=== PATIENT | female | born 1985 | race Caucasian/White ===

== ENCOUNTER 2017-11-22 09:04 | Emergency (ER) | payer SELFPAY ==
--- NOTE | 2017-11-22 09:16 | ER Document Report ---
ED Medical Screen (RME) - General Chief Complaint: Allergic Reaction Stated Complaint: POSSIBLE ALLERGIC REACTION Mode of Arrival: Ambulatory Information source: Patient Notes: Patient is a 32 year old female presenting to the emergency department complaining of a rash and pain in her face. Patient states she was diagnosed with a sinus infection 2 days ago and prescribed an antibiotic. Patient states she took one pill and began to have a rash that was onset today. Patient states her rash is not itchy but still has pain in her face stating "i feel like my head is going to explode". Patient states she has taken Benadryl. GENERAL: Alert, interacts well. No acute distress. HEAD: Normocephalic, Atraumatic. NECK: Full range of motion. Supple. Trachea midline. LUNGS: No stridor. EXTREMITIES: Moves all four extremities spontaneously. SKIN: Blanchable erythema across the face, neck and chest. PSYCH: Patient appears anxious. I have greeted and performed a rapid initial assessment of this patient. A comprehensive ED assessment and evaluation of the patient, analysis of test results and completion of the medical decision making process will be conducted by additional ED providers. TRAVEL OUTSIDE OF THE [place] IN LAST 30 DAYS: No - Related Data Allergies/Adverse Reactions: No Known Allergies Allergy (Verified 11/22/17 09:05) Past Medical History - General Information source: Patient Physical Exam - Vital signs Vitals: Temp Pulse Resp BP Pulse Ox 98.7 F 92 18 105/89 H 99 11/22/17 09:07 11/22/17 09:07 11/22/17 09:07 11/22/17 09:07 11/22/17 09:07 Course - Vital Signs Vital signs: Temp Pulse Resp BP Pulse Ox 98.7 F 92 18 105/89 H 99 11/22/17 09:07 11/22/17 09:07 11/22/17 09:07 11/22/17 09:07 11/22/17 09:07 Scribe Documentation - Scribe Written by Zulma:: Zulma Royal, 11/22/2017 09:31 acting as scribe for :: Homar
[2017-11-22] MEDS ORDERED: DEXAMETHASONE SOD PHOS INJ 10 MG/1 ML VIAL IV ONE (09:55)
[2017-11-22] MEDS ORDERED: DIPHENHYDRAMINE HCL 50 MG/ML VIAL IV ONE (09:55)
[2017-11-22] MEDS ORDERED: KETOROLAC TROMETHAMINE INJ/PF 30 MG/1 ML SDV IV ONE (09:56)
[2017-11-22] MEDS ORDERED: LIDOCAINE 2% JELLY 30 ML TUBE TOP ONE (09:57)
--- NOTE | 2017-11-22 09:57 | ER Document Report ---
ED Allergic Reaction - General Chief Complaint: Allergic Reaction Stated Complaint: POSSIBLE ALLERGIC REACTION Time Seen by Provider: 11/22/17 09:19 Mode of Arrival: Ambulatory Notes: 32 yo female c/o redness to face with burning sensation. Thinks it is the amoxicillion she is taking for ear infection. NO swelling or shortness of breath. TRAVEL OUTSIDE OF THE [place] IN LAST 30 DAYS: No - Related Data Allergies/Adverse Reactions: No Known Allergies Allergy (Verified 11/22/17 09:05) Past Medical History - General Information source: Patient - Social History Smoking Status: Never Smoker Chew tobacco use (# tins/day): No Frequency of alcohol use: Occasional Drug Abuse: None Lives with: Spouse/Significant other Family History: Reviewed & Not Pertinent Patient has suicidal ideation: No Patient has homicidal ideation: No Renal/ Medical History: Denies: Hx Peritoneal Dialysis Surgical Hx: Negative Review of Systems - Review of Systems Constitutional: No symptoms reported EENT: See HPI Cardiovascular: No symptoms reported Respiratory: No symptoms reported Gastrointestinal: No symptoms reported Genitourinary: No symptoms reported Female Genitourinary: No symptoms reported Musculoskeletal: No symptoms reported Skin: See HPI Hematologic/Lymphatic: No symptoms reported Neurological/Psychological: No symptoms reported Physical Exam - Vital signs Vitals: Temp Pulse Resp BP Pulse Ox 98.7 F 92 18 105/89 H 99 11/22/17 09:07 11/22/17 09:07 11/22/17 09:07 11/22/17 09:07 11/22/17 09:07 Interpretation: Normal - General General appearance: Appears well, Alert - HEENT Head: Normocephalic, Atraumatic Eyes: Normal Conjunctiva: Normal Pupils: PERRL Nasal: Normal Mouth/Lips: Normal Mucous membranes: Normal Pharynx: Normal Neck: Supple. No: Lymphadenopathy - Respiratory Respiratory status: No respiratory distress Chest status: Nontender Breath sounds: Normal Chest palpation: Normal - Cardiovascular Rhythm: Regular Heart sounds: Normal auscultation Murmur: No - Abdominal Inspection: Normal Distension: No distension Bowel sounds: Normal Tenderness: Nontender Organomegaly: No organomegaly - Back Back: Normal, Nontender - Extremities General upper extremity: Normal inspection, Nontender, Normal color, Normal ROM , Normal temperature General lower extremity: Normal inspection, Nontender, Normal color, Normal ROM , Normal temperature, Normal weight bearing. No: Latricia's sign - Neurological Neuro grossly intact: Yes Cognition: Normal Orientation: AAOx4 Ti Coma Scale Eye Opening: Spontaneous Ti Coma Scale Verbal: Oriented Ti Coma Scale Motor: Obeys Commands [place] Coma Scale Total: 15 Speech: Normal Motor strength normal: LUE, RUE, LLE, RLE Sensory: Normal - Psychological Associated symptoms: Normal affect, Normal mood - Skin Skin Temperature: Warm Skin Moisture: Dry Skin Color: Normal Skin irregularity: Rash - red dry macular rash lateral bilater orbits and under nose, scattered similar on upper chest Location of irregularity: Face, Chest Course - Re-evaluation Re-evalutation: 11/22/17 10:52 Patient feels better after the lidocaine to numb the skin. There is no increase in the erythema or decrease. There is no swelling. Vital signs are stable - Vital Signs Vital signs: Temp Pulse Resp BP Pulse Ox 98.7 F 92 27 H 104/69 95 11/22/17 09:07 11/22/17 09:07 11/22/17 11:01 11/22/17 11:01 11/22/17 11:01 Discharge - Discharge Clinical Impression: rash Condition: Good Disposition: HOME, SELF-CARE Instructions: Contact Dermatitis ([facility]), Use of Diphenhydramine, Topical Steroid Cream or Ointment ([facility]), Steroid Medication, Topical Lidocaine ([facility]) Additional Instructions: Stop the Augmentin, your ear exam is normal there is no ear infection. Lidocaine jelly to numb the skin Benadryl [id number] hydrocortisone ointment to facial rash Return to the emergency room for any skin peeling swelling fever worsening symptoms. Referral to cuff setter overlock if this persists Forms: Return to Work Referrals: SKIP JONAS DO [ACTIVE STAFF] - Follow up as needed
[2017-11-22] MEDS ORDERED: PROCHLORPERAZINE EDISYLATE INJ 10 MG/2 ML VIAL IV ONE (10:02)
[2017-11-22] MEDS ORDERED: LIDOCAINE 2% JELLY 5 ML TUBE MM PRN (10:16)
[2017-11-22 11:35] VITALS: BP 104/69
== END 2017-11-22 11:47 | disposition home or self-care (01) ==
LOC: ER 09:04
DX: R21 Rash and other nonspecific skin eruption (principal); T78.40XA Allergy, unspecified, initial encounter
CPT/HCPCS: 99283; 96374; 96375; J1200; J1885; J0780; J1100